=== PATIENT | male | born 1945 | race American Indian/Alaskan Native ===

== ENCOUNTER 2019-04-28 12:18 | Outpatient (CLI) | payer OTHER | END 2019-04-28 20:16 | disposition home or self-care (01) | LOC: RAD 12:18 | DX: M79.671 Pain in right foot (principal) ==

== ENCOUNTER 2020-03-08 10:17 | Outpatient (CLI) | payer OTHER ==
[2020-03-08 10:42] LABS: PLATELET COUNT 183 K/uL (142-355)
[2020-03-08 10:53] LABS: POTASSIUM 4.5 mmol/L (3.6-5.2)
== END 2020-03-08 20:35 | disposition home or self-care (01) ==
LOC: LABW 10:17
PROVIDERS: Specialist
DX: Z01.810 Encounter for preprocedural cardiovascular examination (principal); R93.1 Abnormal findings on diagnostic imaging of heart and coronary circulation
CPT/HCPCS: 36415; 80053; 85027

== ENCOUNTER 2020-03-27 03:34 | Emergency (ER) | payer OTHER ==
[~2020-03-27] VITALS: Ht 162.6 cm; Wt 86.2 kg
[2020-03-27 05:22] VITALS: BP 128/75; TEMP 97.9
== END 2020-03-27 05:22 | disposition home or self-care (01) ==
LOC: ED 03:34
PROC: 2Y41X5Z Packing of Nasal Region using Packing Material (ICD-10-PCS; principal; 2020-03-27)
DX: R04.0 Epistaxis (principal); Z98.890 Other specified postprocedural states
CPT/HCPCS: 99282

== ENCOUNTER 2020-03-29 14:41 | Emergency (ER) | payer OTHER ==
[~2020-03-29] VITALS: Ht 167.6 cm; Wt 82.1 kg
[2020-03-29 15:08] VITALS: TEMP 98.9
[2020-03-29 16:00] VITALS: BP 125/87
== END 2020-03-29 16:00 | disposition home or self-care (01) ==
LOC: ED 14:41
PROC: 2Y51X5Z Removal of Nasal Packing Material (ICD-10-PCS; principal; 2020-03-29)
DX: Z51.89 Encounter for other specified aftercare (principal)
CPT/HCPCS: 99282

== ENCOUNTER 2020-10-03 09:33 | Outpatient (CLI) | payer OTHER | END 2020-10-03 22:00 | disposition home or self-care (01) | LOC: LABW 09:33 | PROVIDERS: ATTEND Nurse Practitioner Adult Health | DX: E78.2 Mixed hyperlipidemia (principal); Z79.899 Other long term (current) drug therapy | CPT/HCPCS: 36415; 80061; 80076 ==

== ENCOUNTER 2022-07-20 10:20 | Outpatient (CLI) | payer OTHER | END 2022-07-20 20:46 | disposition home or self-care (01) | LOC: US 10:20 | PROVIDERS: ATTEND Nurse Practitioner Family | DX: R74.8 Abnormal levels of other serum enzymes (principal) ==

== ENCOUNTER 2022-12-21 08:45 | Outpatient (CLI) | payer OTHER | END 2022-12-21 19:05 | disposition home or self-care (01) | LOC: LABW 08:45 | PROVIDERS: ATTEND Nurse Practitioner Adult Health | DX: E78.2 Mixed hyperlipidemia (principal); I25.10 Atherosclerotic heart disease of native coronary artery without angina pectoris; Z79.899 Other long term (current) drug therapy | CPT/HCPCS: 36415; 80061; 80076 ==